=== PATIENT | male | born 1945 | race Caucasian/White ===

== ENCOUNTER 2016-08-30 09:43 | Emergency (ER) | payer MEDICARE, OTHER ==
[~2016-08-30] VITALS: Ht 170.2 cm; Wt 79.4 kg
[~2016-08-30 09:43] MED LIST: BABY81CH PO; BENI20TA25 PO; CELE200C PO; COUM5TAB PO; METO50 PO; PLAV75TA OR; PRED20 PO; SIMV80TA PO; TRAM50 PO
[2016-08-30 10:11] VITALS: BP 135/81; PULSE 105; RESP 16; TEMP 100.1; O2SAT 94
[2016-08-30] MEDS ORDERED: METO-309 PO (10:32)
[2016-08-30] MEDS ORDERED: DIGO0.12 PO (10:32)
[2016-08-30] MEDS ORDERED: LEVO.075 PO (10:32)
[2016-08-30] MEDS ORDERED: CELE200C PO (10:32)
[2016-08-30] MEDS ORDERED: SIMV80TA PO (10:32)
[2016-08-30] MEDS ORDERED: METF500T PO (10:32)
[2016-08-30] MEDS ORDERED: BENI40TA3 PO (10:32)
[2016-08-30] MEDS ORDERED: ASPI1TAB69 PO (10:32)
[2016-08-30] MEDS ORDERED: SODIUM CHLOR 0.9% 1000 ML INJ 1,000 ML IV ONE (10:48)
[2016-08-30 10:54] VITALS: O2SAT 97
[2016-08-30 11:00] LABS: BLOOD, URINE LARGE (NEG); GLUCOSE,URINE NEG (NEG); KETONE, URINE 15 mg/dL (NEG); NITRITE,URINE NEG (NEG); PH, URINE 5.5 (5.0-8.5)
[2016-08-30] MEDS ORDERED: SODIUM CHLORIDE 0.9% FLUSH 5 ML FLUSH IVF PRN (11:00)
--- NOTE | 2016-08-30 11:01 | PD ---
HPI Chief Complaint: Syncope/Near-Syncope Time Seen by Provider: 10:35 Travel History International Travel<30 days: No Contact w/Intl Traveler<30days: No Traveled to known affect area: No History of Present Illness HPI The patient is a 71 year-old male who presents emergency department for generalized weakness. The patient states he was at [employer] yesterday when he suddenly became lightheaded and "woozy ". The patient states he sat down on a chair and then had a syncopal episode. The patient states he lost consciousness during the syncopal episode, however, did not fall out of the chair or strike his head. The patient states he has a history of previous syncopal episodes with previous workup which revealed atrial fibrillation. The patient also underwent a Lariot procedure by his regional refrigerated cdl truck driver in [place]. The patient states he has some generalized weakness, subjective fevers, generalized malaise, and dysuria with mild incontinence. The patient states he can feel the urge to use the restroom, and he occasionally will lose urine prior to making it to the restroom. The patient denies any history of known UTIs. The patient does have a history of atrial fibrillation, hypertension, diabetes, and CVA. The patient does not have a local primary physician. Patient also complains of a dry nonproductive cough, but denies any chest pain or shortness of breath. PFSH Past Medical History Atrial Fibrillation: Yes Cancer: No High Cholesterol: Yes Chest Pain: Yes Cerebrovascular Accident: Yes (X2) Coronary Artery Disease: Yes Diabetes: Yes Patient Takes Glucophage: Yes Endocrine: No Gastrointestinal Disorders: Yes (HEMROIDS) Hypertension: Yes Immune Disorder: No Musculoskeletal: No Neurologic: No Psychiatric: No Myocardial Infarction: Yes Tetanus Vaccination: < 5 Years Influenza Vaccination: Yes PNEUMOCCOCAL Vaccine (Year): 1 Past Surgical History Cardiac Surgery: Yes (LARIOT PROCEDURE) Tonsillectomy: Yes Other Surgery: Yes (HERNIA REPAIR X3) Social History Alcohol Use: Yes (OCC) Tobacco Use: No Substance Use: No Allergies-Medications (Allergen,Severity, Reaction): Coded Allergies: No Known Allergies (Unverified , 08/30/16) Reported Meds & Prescriptions Reported Meds & Active Scripts Active Reported Metformin (Metformin HCl) 500 Mg Tab 500 Mg PO DAILY With a meal Synthroid (Levothyroxine Sodium) 75 Mcg Tab 75 Mcg PO DAILY Digoxin 0.125 Mg Tab 0.125 Mg PO DAILY Simvastatin 80 Mg Tab 80 Mg PO DAILY Benicar (Olmesartan) 40 Mg Tab 40 Mg PO DAILY Lopressor (Metoprolol Tartrate) 50 Mg Tab 50 Mg PO BID Celebrex (Celecoxib) 200 Mg Cap 200 Mg PO Q6HR PRN Aspirin 81 Mg Tabdr 81 Mg PO DAILY Review of Systems Except as stated in HPI: all other systems reviewed are Neg General / Constitutional: No: Fever HENT: Positive: Lightheadedness Cardiovascular: No: Chest Pain or Discomfort Respiratory: Positive: Cough, No: Shortness of Breath Gastrointestinal: No: Nausea, Vomiting, Diarrhea, Abdominal Pain Genitourinary: Positive: Dysuria, Incontinence Neurologic: Positive: Syncope, No: Dizziness Physical Exam Narrative GENERAL: Awake, alert, pleasant 71-year-old male who appears his stated age and is in no acute respiratory distress. SKIN: Warm and dry. HEAD: Atraumatic. Normocephalic. EYES: Pupils equal and round. No scleral icterus. No injection or drainage. ENT: No nasal bleeding or discharge. Mucous membranes pink and moist. NECK: Trachea midline. No JVD. CARDIOVASCULAR:. Regular, no audible murmurs, heart rate in the 90s. RESPIRATORY: No accessory muscle use. Clear to auscultation. Breath sounds equal bilaterally. GASTROINTESTINAL: Abdomen soft, non-tender, nondistended. No rebound tenderness. MUSCULOSKELETAL: No obvious deformities. No clubbing. No cyanosis. No edema. NEUROLOGICAL: Awake and alert. No obvious cranial nerve deficits. Motor grossly within normal limits. Normal speech. PSYCHIATRIC: Appropriate mood and affect; insight and judgment normal. Data Data Last Documented VS Vital Signs Date Time Temp Pulse Resp B/P Pulse Ox O2 Delivery O2 Flow Rate FiO2 08/30/16 11:05 96 17 146/72 96 17 145/78 103 17 148/74 08/30/16 10:54 97 Room Air 08/30/16 10:11 100.1 Orders Electrocardiogram (08/30/16 10:48) Complete Blood Count With Diff (08/30/16 10:48) Comprehensive Metabolic Panel (08/30/16 10:48) Magnesium (Mg) (08/30/16 10:48) Ckmb (Isoenzyme) Profile (08/30/16 10:48) Troponin I (08/30/16 10:48) Urinalysis - C+S If Indicated (08/30/16 10:48) Chest, Single Ap (08/30/16 10:48) Ecg Monitoring (08/30/16 10:48) Iv Access Insert/Monitor (08/30/16 10:48) Oximetry (08/30/16 10:48) Sodium Chloride 0.9% Flush (Ns Flush) (08/30/16 11:00) Sodium Chlor 0.9% 1000 Ml Inj (Ns 1000 M (08/30/16 10:48) Orthostatic Vital Signs (08/30/16 10:48) Influenzae A/B Antigen (08/30/16 10:48) Urine Culture (08/30/16 10:55) Ceftriaxone Inj (Rocephin Inj) (08/30/16 11:30) Labs Laboratory Tests Test 08/30/16 08/30/16 10:55 11:20 Urine Collection Type CLEAN CATCH Urine Color YELLOW Urine Turbidity SLIGHT Urine pH 5.5 Urine Specific [place] 1.018 Urine Protein 30 mg/dL Urine Glucose (UA) NEG mg/dL Urine Ketones 15 mg/dL Urine Occult Blood LARGE Urine Nitrite NEG Urine Bilirubin NEG Urine Leukocyte Esterase SMALL Urine RBC 10-14 /hpf Urine WBC 100-200 /hpf Urine WBC Clumps MOD Urine Squamous Epithelial 0-5 /hpf Cells Urine Bacteria MOD /hpf Microscopic Urinalysis Comment CULTURE INDICATED Urine Collection Time 10:55 White Blood Count 20.2 TH/MM3 Red Blood Count 5.63 MIL/MM3 Hemoglobin 16.3 GM/DL Hematocrit 49.5 % Mean Corpuscular Volume 88.0 FL Mean Corpuscular Hemoglobin 28.9 PG Mean Corpuscular Hemoglobin 32.9 % Concent Red Cell Distribution Width 12.9 % Platelet Count 174 TH/MM3 Mean Platelet Volume 8.1 FL Neutrophils (%) (Auto) 91.2 % Lymphocytes (%) (Auto) 2.7 % Monocytes (%) (Auto) 5.7 % Eosinophils (%) (Auto) 0.3 % Basophils (%) (Auto) 0.1 % Neutrophils # (Auto) 18.4 TH/MM3 Lymphocytes # (Auto) 0.5 TH/MM3 Monocytes # (Auto) 1.2 TH/MM3 Eosinophils # (Auto) 0.1 TH/MM3 Basophils # (Auto) 0.0 TH/MM3 CBC Comment DIFF FINAL Differential Comment Sodium Level 137 MEQ/L Potassium Level 4.2 MEQ/L Chloride Level 101 MEQ/L Carbon Dioxide Level 26.5 MEQ/L Anion Gap 10 MEQ/L Blood Urea Nitrogen 21 MG/DL Creatinine 1.30 MG/DL Estimat Glomerular Filtration 55 ML/MIN Rate Random Glucose 156 MG/DL Calcium Level 8.9 MG/DL Magnesium Level 1.8 MG/DL Total Bilirubin 1.1 MG/DL Aspartate Amino Transf 13 U/L (AST/SGOT) Alanine Aminotransferase 17 U/L (ALT/SGPT) Alkaline Phosphatase 75 U/L Total Creatine Kinase 53 U/L Troponin I LESS THAN 0.02 NG/ML Total Protein 7.1 GM/DL Albumin 3.0 GM/DL [facility] Medical Decision Making Medical Screen Exam Complete: Yes Emergency Medical Condition: Yes Medical Record Reviewed: Yes Interpretation(s) EKG reveals normal sinus rhythm with a rate in 97. Left anterior fascicular block. Nonspecific ST changes. Laboratory Tests Test 08/30/16 08/30/16 10:55 11:20 Urine Collection Type CLEAN CATCH Urine Color YELLOW Urine Turbidity SLIGHT Urine pH 5.5 Urine Specific [place] 1.018 Urine Protein 30 mg/dL Urine Glucose (UA) NEG mg/dL Urine Ketones 15 mg/dL Urine Occult Blood LARGE Urine Nitrite NEG Urine Bilirubin NEG Urine Leukocyte Esterase SMALL Urine RBC 10-14 /hpf Urine WBC 100-200 /hpf Urine WBC Clumps MOD Urine Squamous Epithelial 0-5 /hpf Cells Urine Bacteria MOD /hpf Microscopic Urinalysis Comment CULTURE INDICATED Urine Collection Time 10:55 White Blood Count 20.2 TH/MM3 Red Blood Count 5.63 MIL/MM3 Hemoglobin 16.3 GM/DL Hematocrit 49.5 % Mean Corpuscular Volume 88.0 FL Mean Corpuscular Hemoglobin 28.9 PG Mean Corpuscular Hemoglobin 32.9 % Concent Red Cell Distribution Width 12.9 % Platelet Count 174 TH/MM3 Mean Platelet Volume 8.1 FL Neutrophils (%) (Auto) 91.2 % Lymphocytes (%) (Auto) 2.7 % Monocytes (%) (Auto) 5.7 % Eosinophils (%) (Auto) 0.3 % Basophils (%) (Auto) 0.1 % Neutrophils # (Auto) 18.4 TH/MM3 Lymphocytes # (Auto) 0.5 TH/MM3 Monocytes # (Auto) 1.2 TH/MM3 Eosinophils # (Auto) 0.1 TH/MM3 Basophils # (Auto) 0.0 TH/MM3 CBC Comment DIFF FINAL Differential Comment Sodium Level 137 MEQ/L Potassium Level 4.2 MEQ/L Chloride Level 101 MEQ/L Carbon Dioxide Level 26.5 MEQ/L Anion Gap 10 MEQ/L Blood Urea Nitrogen 21 MG/DL Creatinine 1.30 MG/DL Estimat Glomerular Filtration 55 ML/MIN Rate Random Glucose 156 MG/DL Calcium Level 8.9 MG/DL Magnesium Level 1.8 MG/DL Total Bilirubin 1.1 MG/DL Aspartate Amino Transf 13 U/L (AST/SGOT) Alanine Aminotransferase 17 U/L (ALT/SGPT) Alkaline Phosphatase 75 U/L Total Creatine Kinase 53 U/L Troponin I LESS THAN 0.02 NG/ML Total Protein 7.1 GM/DL Albumin 3.0 GM/DL Last Impressions Chest X-Ray 08/30/16 1048 Signed Impressions: Service Date/Time: Tuesday, August 30, 2016 11:08 - CONCLUSION: No acute disease. Shahid Wade MD Differential Diagnosis Differential diagnosis includes UTI, influenza, arrhythmia, electrolyte abnormality, pneumonia, viral syndrome, vasovagal syncope, orthostatic hypotension, dehydration. Narrative Course IV was established, labs were drawn and sent, and the patient was placed on cardiac telemetry monitoring and continuous pulse oximetry monitoring. EKG was ordered and interpreted. Chest x-ray was ordered. Orthostatic vital signs were obtained and the patient was administered 1 L of IV fluids. The patient's UA came back positive for UTI, therefore, patient was administered Rocephin 1 g intravenously. The patient's life count then came back, was elevated at 20.2. The patient's heart rate was 105 initially when he came in, however, when reevaluated at 11:45 AM, was in the 80s. I had a discussion with the patient regarding outpatient treatment versus inpatient treatment as he does have a white count, mild tachycardia, with infection. However, the patient states he would prefer to have outpatient treatment first, therefore, lactic acid blood culture were not sent to lab. I did advise the patient to return immediately if his symptoms progress or if he does not improve in 48 hours. The patient agrees and understands. Diagnosis Primary Impression: UTI (urinary tract infection) Qualified Code: N30.00 - Acute cystitis without hematuria Additional Impression: Syncope Qualified Code: R55 - Syncope, unspecified syncope type Patient Instructions: General Instructions Additional Instructions: Medications as directed. Return if symptoms worsen or do not improve in 24-48 hours. Follow-up with a primary physician. Med/Other Pt SpecificInfo: Prescription(s) given Scripts Ciprofloxacin (Cipro)500 Mg [id number] Mg PO BID 7 Days Ref 0 Prov:Adolfo Escalona MD 08/30/16 Disposition: 01 DISCHARGE HOME Condition: Stable Adolfo Escalona MD Aug 30, 2016 11:01
[2016-08-30 11:05] VITALS: BP_SYST 145; BP_SYST 146; BP_SYST 148; BP_DIAS 72; BP_DIAS 74; BP_DIAS 78; RESP 17
[2016-08-30 11:05] LABS: METHOD OF COLLECTION CLEAN CATCH; URINE COLOR YELLOW (YELLW/STRAW)
[2016-08-30 11:06] LABS: BACTERIA, URINE MOD /hpf; COMMENT (UR) CULTURE INDICATED; CULTURE IF INDICATED CULTURE INDICATED; SQUAMOUS EPITHELIAL CELL URINE 0-5 /hpf (0-5); WBC, URINE 100-200 /hpf (0-5)
[2016-08-30 11:25] LABS: AUTOMATED NEUTROPHIL # 18.4 TH/MM3 (1.8-7.7); BASOPHIL % 0.1 % (0.0-2.0); EOSINOPHIL # 0.1 TH/MM3 (0-0.4); EOSINOPHIL % 0.3 % (0.0-4.0); HEMATOCRIT 49.5 % (39.0-51.0); LYMPH % 2.7 % (9.0-44.0); LYMPHOCYTE # 0.5 TH/MM3 (1.0-4.8); MEAN CORPUSCULAR HEMOGLOBIN 28.9 PG (27.0-34.0); MEAN CORPUSCULAR HGB CONC 32.9 % (32.0-36.0); MONO % 5.7 % (0.0-8.0); NEUT % 91.2 % (16.0-70.0); PLATELET COUNT 174 TH/MM3 (150-450); RED BLOOD COUNT 5.63 MIL/MM3 (4.50-5.90); RED CELL DISTRIBUTION WIDTH 12.9 % (11.6-17.2); WHITE BLOOD COUNT 20.2 TH/MM3 (4.0-11.0)
[2016-08-30 11:26] LABS: HEMO FLAGS DIFF FINAL
[2016-08-30] MEDS ORDERED: cefTRIAXone INJ 1,000 MG in SODIUM CHLORIDE 0.9% INJ 100 ML IV ONE (11:30)
[2016-08-30 11:33] LABS: CHLORIDE 101 MEQ/L (98-107); POTASSIUM 4.2 MEQ/L (3.5-5.1); SODIUM (NA) 137 MEQ/L (136-145)
[2016-08-30 11:37] LABS: ANION GAP 10 MEQ/L (5-15); BICARBONATE 26.5 MEQ/L (21.0-32.0); BLOOD UREA NITROGEN 21 MG/DL (7-18); MAGNESIUM 1.8 MG/DL (1.5-2.5)
--- NOTE | 2016-08-30 11:37 | RADHPO ---
EXAM DATE/TIME: 08/30/2016 11:08 [facility] COMPARISON: No previous studies available for comparison. INDICATIONS : Weakness, syncope. MEDICAL HISTORY : None. SURGICAL HISTORY : None. ENCOUNTER: Initial ACUITY: 2 days PAIN SCORE: 0/10 LOCATION: Bilateral chest FINDINGS: A single view of the chest demonstrates the lungs to be symmetrically aerated without evidence of mas s, infiltrate or effusion. The cardiomediastinal contours are unremarkable. Osseous structures are intact. CONCLUSION: No acute disease. Shahid Wade MD on August 30, 2016 at 11:35 Board Certified Radiologist. This report was verified electronically.
[2016-08-30 11:40] LABS: ALT (GPT) 17 U/L (12-78); AST (GOT) 13 U/L (15-37); GLOMERULAR FILTRATION RATE 55 ML/MIN (>89)
[2016-08-30 11:42] LABS: TOTAL BILIRUBIN ADULT 1.1 MG/DL (0.2-1.0)
[2016-08-30 11:43] LABS: ALKALINE PHOSPHATASE 75 U/L (45-117)
[2016-08-30 11:51] LABS: CREATINE KINASE 53 U/L (39-308)
[2016-08-30] MEDS ORDERED: CIPR-9 PO (12:09)
[2016-08-30 13:00] VITALS: BP 158/76
--- NOTE | 2016-08-31 20:52 | EKG ---
Date Performed: 08/30/2016 Time Performed: 10:58:18 PTAGE: 71 years EKG: Sinus rhythm Left anterior fascicular block Left ventricular hypertrophy Septal and lateral ST-T changes Abnormal ECG PREVIOUS TRACING : 09/13/2011 17.57 Compared to prior tracing no significant change DOCTOR: Nabila Gannon Interpretating Date/Time 08/31/2016 20:50:39
== END 2016-08-30 13:08 | disposition home or self-care (01) ==
LOC: PHED 09:43
DX: R55 Syncope and collapse (principal); N39.0 Urinary tract infection, site not specified; R00.0 Tachycardia, unspecified; I48.91 Unspecified atrial fibrillation; E78.00 Pure hypercholesterolemia, unspecified; Z86.73 Personal history of transient ischemic attack (TIA), and cerebral infarction without residual deficits; I25.10 Atherosclerotic heart disease of native coronary artery without angina pectoris; E11.9 Type 2 diabetes mellitus without complications; I10 Essential (primary) hypertension; I25.2 Old myocardial infarction; Z79.4 Long term (current) use of insulin
CPT/HCPCS: 71010; 80053; 81001; 82550; 83735; 84484; 85025; 87077; 87086; 87186; 87804; 93005; 96365; 99285; J0696; J7030

== ENCOUNTER 2017-09-15 14:50 | Emergency (ER) | payer MEDICARE ==
[~2017-09-15] VITALS: Ht 172.7 cm; Wt 82.7 kg
[~2017-09-15 14:50] MED LIST changes: +ASPI1TAB69 PO; -BABY81CH PO; -BENI20TA25 PO; +BENI40TA29 PO; +CIPR-9 PO; -COUM5TAB PO; +DIGO0.12 PO; +LEVO.075 PO; +METF500T PO; +METO-309 PO; -METO50 PO; -PLAV75TA OR; -PRED20 PO; -TRAM50 PO
[2017-09-15 15:07] VITALS: BP 180/105; PULSE 77; RESP 16; TEMP 98.5; O2SAT 95
[2017-09-15] MEDS ORDERED: ALLO300T2 PO (16:17)
[2017-09-15] MEDS ORDERED: ASPI-516 CHEW (16:17)
[2017-09-15] MEDS ORDERED: DICL75TA PO (16:47)
[2017-09-15] MEDS ORDERED: TRAM50TA PO ×2 (16:47→16:48)
[2017-09-15] MEDS ORDERED: MEDR4PAK PO (16:47)
--- NOTE | 2017-09-15 16:54 | RADRPT ---
EXAM DATE/TIME: 09/15/2017 16:34 [facility] COMPARISON: No previous studies available for comparison. INDICATIONS : Right lateral hand pain. No known injury. MEDICAL HISTORY : None. SURGICAL HISTORY : None. ENCOUNTER: Initial ACUITY: 1 week PAIN SCORE: 2/10 LOCATION: Right upper extremity FINDINGS: Three view examination of the right hand demonstrates no soft tissue swelling, dislocation, or fractu re. Calcification of the triangular fibrocartilage. The carpal bones appear intact. The interphalan geal and metacarpophalangeal joints are intact. Bony mineralization is normal. CONCLUSION: 1. No acute abnormality. 2. Calcification of the triangular fibrocartilage suggests chronic injury. Valerio Rivas Jr., MD on September 15, 2017 at 16:49 Board Certified Radiologist. This report was verified electronically.
--- NOTE | 2017-09-15 16:56 | PD ---
HPI Chief Complaint: Pain: Acute or Chronic Time Seen by Provider: 16:12 Travel History International Travel<30 days: No Contact w/Intl Traveler<30days: No Traveled to known affect area: No History of Present Illness HPI 72-year-old male that presents to the ED for evaluation of right wrist and hand pain. Per patient he has had this for about a week and comes and goes. Per patient is more severe with certain movement. Per patient was negative more severe which is what prompted evaluation. He denies any injury or trauma. Per patient he did do some heavy lifting and uses a computer a lot that he is not sure if is causing it. He thought maybe he had carpal tunnel but he has no numbness, weakness, tingling sensation. Only finger affected is the first digit and most of the pain appears to be more on the dorsal aspect of the radial head. Pain per patient gets to be sharp and currently has no pain unless he abducts or flexes his wrist. Again he denies any falls or injuries. Per patient the pain gets to be 7 out of 10. PFSH Past Medical History Hx Anticoagulant Therapy: Yes (BABY ASA DAILY) Atrial Fibrillation: Yes Cancer: No Cardiovascular Problems: Yes (IN, HTN, CHOL) High Cholesterol: Yes Chest Pain: Yes Cerebrovascular Accident: Yes Coronary Artery Disease: Yes Diabetes: Yes (TYPE 2 ) Patient Takes Glucophage: No Endocrine: No Gastrointestinal Disorders: Yes (HEMROIDS) Hypertension: Yes Immune Disorder: No Musculoskeletal: No Neurologic: No Psychiatric: No Myocardial Infarction: Yes PNEUMOCCOCAL Vaccine (Year): 1 Past Surgical History Cardiac Surgery: Yes (LARIOT PROCEDURE) Tonsillectomy: Yes Other Surgery: Yes (HERNIA REPAIR X3) Social History Alcohol Use: Yes (OCC) Tobacco Use: No Substance Use: No Allergies-Medications (Allergen,Severity, Reaction): Coded Allergies: *MDRO Multi-Drug Resistant Organism (Verified Adverse Reaction, Unknown, ) ESBL K. pneumoniae (urine) - 08/30/16 Reported Meds & Prescriptions Reported Meds & Active Scripts Active Tramadol (Tramadol HCl) 50 Mg Tab 50 Mg PO Q6H PRN Diclofenac Sodium DR (Diclofenac Sodium) 75 Mg Tabdr 75 Mg PO BID PRN Medrol Dosepak (Methylprednisolone) 4 Mg Dspk 4 Mg PO DIRECTED Per Pharmacist direction Reported Allopurinol 300 Mg Tab 300 Mg PO DAILY Aspirin 81 Mg Chew 81 Mg CHEW DAILY Metformin (Metformin HCl) 500 Mg Tab 500 Mg PO DAILY With a meal Synthroid (Levothyroxine Sodium) 75 Mcg Tab 75 Mcg PO DAILY Digoxin 0.125 Mg Tab 0.125 Mg PO DAILY Simvastatin 80 Mg Tab 80 Mg PO DAILY Benicar (Olmesartan) 40 Mg Tab 40 Mg PO DAILY Lopressor (Metoprolol Tartrate) 50 Mg Tab 50 Mg PO BID Celebrex (Celecoxib) 200 Mg Cap 200 Mg PO Q6HR PRN Review of Systems Except as stated in HPI: all other systems reviewed are Neg Physical Exam Narrative GENERAL: SKIN: Warm and dry. HEAD: Atraumatic. Normocephalic. EYES: Pupils equal and round. No scleral icterus. No injection or drainage. ENT: No nasal bleeding or discharge. Mucous membranes pink and moist. NECK: Trachea midline. No JVD. CARDIOVASCULAR: Regular rate and rhythm. RESPIRATORY: No accessory muscle use. Clear to auscultation. Breath sounds equal bilaterally. GASTROINTESTINAL: Abdomen soft, non-tender, nondistended. Hepatic and splenic margins not palpable. MUSCULOSKELETAL: Extremities without clubbing, cyanosis, or edema. No obvious deformities. Full range of motion of all digits. Patient does have Flinkenstein's test positive on the right hand. No scaphoid bone tenderness to palpation. All the pain appears to be reproducible with range of motion especially with abduction of the wrist as well as flexion of the wrist. All the pain appears to be around the tendon. No obvious bony deformity noted. Good capillary refill full digits. Neurovascular intact. NEUROLOGICAL: Awake and alert. No obvious cranial nerve deficits. Motor grossly within normal limits. Five out of 5 muscle strength in the arms and legs. Normal speech. PSYCHIATRIC: Appropriate mood and affect; insight and judgment normal. Data Data Last Documented VS Vital Signs Date Time Temp Pulse Resp B/P (MAP) Pulse Ox O2 Delivery O2 Flow Rate FiO2 09/15/17 15:07 98.5 77 16 180/105 (130) 95 Orders Orders Hand, Complete ([id number]) (09/15/17 ) Splint Or Brace Apply/Monitor (09/15/17 16:31) MDM Medical Decision Making Medical Screen Exam Complete: Yes Emergency Medical Condition: Yes Medical Record Reviewed: Yes Interpretation(s) X-ray of the right hand did not show any sign of bony injury Differential Diagnosis De Quervain's tenosynovitis versus tendinitis versus fracture versus arthritis Narrative Course 72-year-old male that presents to the ED for evaluation of injury to his right hand. Patient was properly examined and was found to have signs and symptoms which appeared to be more consistent with the current tenosynovitis. X-ray was done and was negative for acute disease. Patient was reassured. Patient was given prescriptions for Medrol Dosepak, tramadol, diclofenac sodium. Given brace. Recommend no heavy lifting with that right arm until completely better. See ED worsening symptoms. Follow with PCP. Ice or warm compresses as needed. Diagnosis Primary Impression: De Quervain's tenosynovitis, right Patient Instructions: General Instructions Additional Instructions: Take medications as prescribed. Follow-up with PCP. See ED for any worsening symptoms. Do not drink or drive while taking pain medication. Apply ice or heat as needed for pain Med/Other Pt SpecificInfo: Prescription(s) given Scripts Tramadol (Tramadol) 50 Mg Tab 50 MG PO Q6H Y for PAIN, #10 TAB 0 Refills Prov: Constance Krause MD 09/15/[address] (Diclofenac Sodium DR) 75 Mg Tabdr 75 MG PO BID Y for PAIN SCALE 1 TO 10, #20 TAB 0 Refills Prov: Constance Krause MD 09/15/17 Methylprednisolone Dosepak (Medrol Dosepak) 4 Mg Dspk 4 MG PO DIRECTED, #1 DSPK 0 Refills Per Pharmacist direction Prov: Constance Krause MD 09/15/17 Disposition: 01 DISCHARGE HOME Condition: Stable Andrzej Isbell Sep 15, 2017 16:56
== END 2017-09-15 17:10 | disposition home or self-care (01) ==
LOC: PHEFT 14:50
DX: M65.4 Radial styloid tenosynovitis [de Quervain] (principal); E11.9 Type 2 diabetes mellitus without complications; E78.00 Pure hypercholesterolemia, unspecified; I10 Essential (primary) hypertension; I25.2 Old myocardial infarction; I25.10 Atherosclerotic heart disease of native coronary artery without angina pectoris; I48.91 Unspecified atrial fibrillation; Z79.84 Long term (current) use of oral hypoglycemic drugs
CPT/HCPCS: 73130; 99283; L3908